=== PATIENT | male | born 1975 | race Caucasian/White ===

== ENCOUNTER → 2018-01-26 | Day surgery (SDC) | payer OTHER ==
--- NOTE | 2018-01-26 14:02 | RADIOLOGY REPORT (SQ) ---
EXAM DESCRIPTION: ARTHRO HIP INJ W/ANESTHESIA; FLUORO/NEEDLE PLACEMENT COMPLETED DATE/TIME: 01/26/2018 1:50 pm REASON FOR STUDY: PAIN IN RIGHT HIP COMPARISON: None. FLUOROSCOPY TIME: 1 second. 1 images saved to PACS. LIMITATIONS: None. PROCEDURE: Procedure, risks, benefits and alternatives explained to patient who then gave written c onsent. The right hip was marked and a time-out was called for correct marking verification. Entry site marked using fluoroscopic guidance. Hip prepped and draped using sterile technique. Local ane sthesia achieved using 1% lidocaine injection. Hypodermic needle introduced into the joint space un jennifer direct fluoroscopic visualization. Non-ionic contrast instilled to confirm intra-articular posit ion. Dilute gadolinium solution then injected. Needle removed and entry site covered with sterile bandage. No immediate complications noted. TECHNIQUE: Digital images acquired during fluoroscopy and stored on PACS. Patient immediately take n to the MR suite for additional imaging. INJECTION LOCATION: Right hip. CONTRAST TYPE AND AMOUNT: 1 mL Isovue-300 and 9 mL Prohance/Saline mixture. IMPRESSION: SUCCESSFUL NEEDLE PLACEMENT AND INJECTION FOR RIGHT HIP MR ARTHROGRAM. COMMENT: Quality ID 145: Final reports for procedures using fluoroscopy that document radiation exp osure indices, or exposure time and number of fluorographic images (if radiation exposure indices are not available) TECHNICAL DOCUMENTATION: JOB ID: [id number] [employer]- All Rights Reserved Reading location - IP/workstation name: [email or web address]
--- NOTE | 2018-01-26 14:02 | RADIOLOGY REPORT (SQ) ---
EXAM DESCRIPTION: ARTHRO HIP INJ W/ANESTHESIA; FLUORO/NEEDLE PLACEMENT COMPLETED DATE/TIME: 01/26/2018 1:50 pm REASON FOR STUDY: PAIN IN RIGHT HIP COMPARISON: None. FLUOROSCOPY TIME: 1 second. 1 images saved to PACS. LIMITATIONS: None. PROCEDURE: Procedure, risks, benefits and alternatives explained to patient who then gave written c onsent. The right hip was marked and a time-out was called for correct marking verification. Entry site marked using fluoroscopic guidance. Hip prepped and draped using sterile technique. Local ane sthesia achieved using 1% lidocaine injection. Hypodermic needle introduced into the joint space un jennifer direct fluoroscopic visualization. Non-ionic contrast instilled to confirm intra-articular posit ion. Dilute gadolinium solution then injected. Needle removed and entry site covered with sterile bandage. No immediate complications noted. TECHNIQUE: Digital images acquired during fluoroscopy and stored on PACS. Patient immediately take n to the MR suite for additional imaging. INJECTION LOCATION: Right hip. CONTRAST TYPE AND AMOUNT: 1 mL Isovue-300 and 9 mL Prohance/Saline mixture. IMPRESSION: SUCCESSFUL NEEDLE PLACEMENT AND INJECTION FOR RIGHT HIP MR ARTHROGRAM. COMMENT: Quality ID 145: Final reports for procedures using fluoroscopy that document radiation exp osure indices, or exposure time and number of fluorographic images (if radiation exposure indices are not available) TECHNICAL DOCUMENTATION: JOB ID: [id number] [employer]- All Rights Reserved Reading location - IP/workstation name: [email or web address]
--- NOTE | 2018-01-26 15:02 | RADIOLOGY REPORT (SQ) ---
EXAM DESCRIPTION: MRI RT LOWER JOINT WITH COMPLETED DATE/TIME: 01/26/2018 2:34 pm REASON FOR STUDY: PAIN IN RIGHT HIP COMPARISON: Plain radiograph TECHNIQUE: Post arthrogram imaging is performed using T1 and T1 and T2 fat saturated sequences of th e pelvis and specific hip of interest. LIMITATIONS: None. FINDINGS: JOINT DISTENSION: Adequate. No loose body. BONE MARROW: No edema. No marrow replacement. FEMORAL HEAD, NECK, AND ACETABULUM: No occult fracture. No osteophytes or subchondral cysts. Normal s phericity of femoral head/neck junction. No acetabular dysplasia. No evidence of femoroacetabular imp ingement. PUBIC RAMI AND ISCHIUM: No occult fracture. SACRUM AND KENAN: SI joints normal in signal. No occult fracture. EFFUSIONS: None. LABRUM AND CARTILAGE: History of prior labral repair. There does not appear to be a recurrent tear. MUSCLES AND SOFT TISSUES: Adductors and piriformis normal. Abductors and greater trochanteric bursa n ormal without edema or fluid. Iliopsoas bursa without fluid. Hamstring attachments without edema or t ear. PELVIC SOFT TISSUES: No masses or adenopathy. SCIATIC NERVE: Identified without masses. OTHER: No other significant finding. IMPRESSION: No acute findings. No evidence for recurrent labral tear. TECHNICAL DOCUMENTATION: JOB ID: [id number] [employer]- All Rights Reserved Reading location - IP/workstation name: [email or web address]
== END ==
LOC: RAD 12:25
PROVIDERS: ATTEND Physician Assistant
DX: M25.551 Pain in right hip (principal)
CPT/HCPCS: 73722; 77002; 27095; A9576

== ENCOUNTER → 2018-02-24 | Day surgery (SDC) | payer OTHER ==
[~2018-02-24] MED LIST: BUPIVACAINE HCL 0.5 % INJ/PF 30 ML SDV ONE; LIDOCAINE 1% INJ-PF (10 MG/ML) 30 ML SDV ONE; METHYLPREDNISOLONE ACETATE INJ 40 MG/1 ML ML ONE
--- NOTE | 2018-02-24 14:31 | RADIOLOGY REPORT (SQ) ---
EXAM DESCRIPTION: INJECT/ASPIR HIP/SHLDR/KNEE; FLUORO/NEEDLE PLACEMENT COMPLETED DATE/TIME: 02/24/2018 2:03 pm REASON FOR STUDY: RIGHT HIP PAIN (M25.551) M25.551 PAIN IN RIGHT HIP COMPARISON: 01/26/2018 right hip MR arthrogram FLUOROSCOPY TIME: 10 seconds 1 digital radiographic image saved to PACS. LIMITATIONS: None. PROCEDURE: SITE OF INJECTION: Right hip LOCALIZING CONTRAST TYPE AND DOSE: 1 mL of Isovue 300 MEDICATION TYPE AND DOSE: 80 mg of Depo-Medrol, 5 mL of 0.5% bupivacaine Using local anesthesia and sterile technique with fluoroscopic guidance, the needle was advanced into the joint. Iodinated contrast was injected to verify intraarticular placement. This was followed by therapeutic injection of the indicated medications. The needle was removed. There were no immediat e complications. Preprocedure pain level: 8/10. Postprocedure pain level: 0/10. IMPRESSION: THERAPEUTIC INJECTION OF THE RIGHT HIP JOINT ABOVE. COMMENT: Patient medication list reviewed: Yes- Quality ID# [id number]:Eligible professional attests to doc umenting in the medical record they obtained, updated, or reviewed the patient's current medications. . Quality ID 145: Final reports for procedures using fluoroscopy that document radiation exposure chuyita natalya, or exposure time and number of fluorographic images (if radiation exposure indices are not avail able) TECHNICAL DOCUMENTATION: JOB ID: [id number] [employer]- All Rights Reserved Reading location - IP/workstation name: [email or web address]
--- NOTE | 2018-02-24 14:31 | RADIOLOGY REPORT (SQ) ---
EXAM DESCRIPTION: INJECT/ASPIR HIP/SHLDR/KNEE; FLUORO/NEEDLE PLACEMENT COMPLETED DATE/TIME: 02/24/2018 2:03 pm REASON FOR STUDY: RIGHT HIP PAIN (M25.551) M25.551 PAIN IN RIGHT HIP COMPARISON: 01/26/2018 right hip MR arthrogram FLUOROSCOPY TIME: 10 seconds 1 digital radiographic image saved to PACS. LIMITATIONS: None. PROCEDURE: SITE OF INJECTION: Right hip LOCALIZING CONTRAST TYPE AND DOSE: 1 mL of Isovue 300 MEDICATION TYPE AND DOSE: 80 mg of Depo-Medrol, 5 mL of 0.5% bupivacaine Using local anesthesia and sterile technique with fluoroscopic guidance, the needle was advanced into the joint. Iodinated contrast was injected to verify intraarticular placement. This was followed by therapeutic injection of the indicated medications. The needle was removed. There were no immediat e complications. Preprocedure pain level: 8/10. Postprocedure pain level: 0/10. IMPRESSION: THERAPEUTIC INJECTION OF THE RIGHT HIP JOINT ABOVE. COMMENT: Patient medication list reviewed: Yes- Quality ID# [id number]:Eligible professional attests to doc umenting in the medical record they obtained, updated, or reviewed the patient's current medications. . Quality ID 145: Final reports for procedures using fluoroscopy that document radiation exposure chuyita natalya, or exposure time and number of fluorographic images (if radiation exposure indices are not avail able) TECHNICAL DOCUMENTATION: JOB ID: [id number] [employer]- All Rights Reserved Reading location - IP/workstation name: [facility]
== END ==
LOC: RAD 12:47
PROVIDERS: ATTEND Physician Assistant
DX: G89.29 Other chronic pain (principal); M25.551 Pain in right hip
CPT/HCPCS: 20610; 77002; J3490 ×2; J1020